=== PATIENT | female | born 1965 | race Caucasian/White ===

== ENCOUNTER 2016-11-16 23:17 | Emergency (ER) | payer OTHER ==
[~2016-11-16 23:17] MED LIST: ACCUPRIL5 MG PO; ALLERGY10 MG PO; ATORVASTATIN CA40 MG PO; CRESTOR20 MG PO; CYMBALTA 30MG C30 MG PO; GLUCOPHAGE1000 MG PO; LANTUS100 UNIT/1 SC; LOPRESSOR50 MG PO; NORCO 5-325 TA1 EAC1 PO; TRICOR145 MG PO; ULTRAM50 MG PO
== END 2016-11-17 01:05 | disposition home or self-care (01) ==
LOC: FER 23:17
DX: S46.912A Strain of unspecified muscle, fascia and tendon at shoulder and upper arm level, left arm, initial encounter (principal); S66.911A Strain of unspecified muscle, fascia and tendon at wrist and hand level, right hand, initial encounter; E11.9 Type 2 diabetes mellitus without complications; I10 Essential (primary) hypertension; G89.29 Other chronic pain; E78.5 Hyperlipidemia, unspecified; Z79.84 Long term (current) use of oral hypoglycemic drugs; Z79.4 Long term (current) use of insulin; Z79.891 Long term (current) use of opiate analgesic; Z79.899 Other long term (current) drug therapy; X50.0XXA Overexertion from strenuous movement or load, initial encounter
CPT/HCPCS: J1100

== ENCOUNTER 2016-12-03 04:41 | Day surgery (SDCO) | payer OTHER ==
[~2016-12-03] VITALS: Ht 167.6 cm; Wt 96.4 kg
[2016-12-03 05:41] LABS: BASOPHIL 0.3 % (0-2); EOSINOPHIL 1.6 % (0-5); HCT 37.7 % (37.0-47.0); HGB 12.5 g/dl (12.5-16.0); LYMPHOCYTE 12.5 % (15-48); MCH 26.9 pg (25.0-31.0); MCHC 33.2 g/dL (32.0-36.0); MCV 81.3 fL (78.0-100.0); MONOCYTE 6.9 % (0-12); MPV 9.2 fL (6.0-9.5); NEUTROPHIL 78.7 % (41-80); PLT 216 K/uL (150-400); RBC 4.64 M/uL (4.20-5.40); RDW 13.5 % (11.5-14.0); WBC 7.7 K/uL (4.0-10.5)
[2016-12-03 05:51] LABS: INR 0.93 (0.9-1.2); PROTHROMBIN TIME 12.1 SECONDS (11.7-14.0)
[2016-12-03 05:52] LABS: PTT 26.2 SECONDS (23.2-31.4)
[2016-12-03 06:02] LABS: BILIRUBIN - TOTAL 0.3 mg/dL (0.1-1.0); CKMB 1.63 ng/mL (0.97-4.94); CREATININE 0.8 mg/dL (0.5-1.0); GLOBULIN (CALCULATION) 2.6 g/dL (2.2-4.2); MAGNESIUM 1.55 mg/dL (1.40-2.10); MYOGLOBIN 21 ng/mL (26-65); POTASSIUM 3.8 mmol/L (3.5-5.1); PRO-BNP 20 pg/mL (0-125); TOTAL PROTEIN 6.6 g/dL (6.4-8.3); TROPONIN T < 0.010 ng/mL
--- NOTE | 2016-12-04 12:00 | NUR ---
IV SITE D/C'D;PRESSURE DRESSING APPLIED;PT TOLERATED WELL. D/C & RX INSTRUCTIONS GIVEN;PT VERBALIZED UNDERSTANDING. 1245 D/C'D FROM FACILITY
== END 2016-12-04 13:19 | disposition home or self-care (01) ==
LOC: FER 04:41 → FICU 06:31 → FTCU 06:31 → FICU 06:31 → FTCU 15:14
PROVIDERS: Emergency Medicine; ADMIT Allergy & Immunology
DX: R07.89 Other chest pain (principal); R42 Dizziness and giddiness; E11.9 Type 2 diabetes mellitus without complications; I10 Essential (primary) hypertension; E78.5 Hyperlipidemia, unspecified; J44.9 Chronic obstructive pulmonary disease, unspecified; M54.5 Low back pain; N20.0 Calculus of kidney; G47.30 Sleep apnea, unspecified; Z90.49 Acquired absence of other specified parts of digestive tract; Z90.710 Acquired absence of both cervix and uterus; Z98.890 Other specified postprocedural states; Z87.891 Personal history of nicotine dependence; Z79.899 Other long term (current) drug therapy; Z79.84 Long term (current) use of oral hypoglycemic drugs
CPT/HCPCS: 36415; 71010; 80053; 80061; 82550; 82553; 83735; 83874; 83880; 84443; 84484; 85025; 85610; 85730; 87450; 93005; C9113; G0378; J1885; J2405

== ENCOUNTER → 2020-11-10 | Day surgery (SDC) | payer OTHER ==
[~2020-11-10] MED LIST changes: +AMLODIPINE BESYL5 MG PO; +BASAGLAR K100 UNIT/1 SC; +BENTYL10 MG PO; +CARAFATE1 GM PO; +CEFDINIR300 MG PO; +COLESTID 1GM TAB1 GM PO; +COZAAR100 MG PO; +DITROPAN XL10 MG PO; +DOXYCYCLINE HY100 MG MT; +FENOFIBRATE40 MG PO; +FLUOXETINE HCL10 M1 PO; +FOLBIC RF TABL1 EACH PO; +GABAPENTIN300 MG MT; +HCTZ25 MG PO; +HUMALOG 75100 UNIT/M PO; +HYDROCODON-ACE1 EAC2 PO; +IRON18 MG PO; +MEDROL 4MG DOSEP4 MG PO; +METFORMIN HCL500 M1 PO; +METOPROLOL SUCC25 MG MT; +NORCO 5-325 TA1 EACH PO; +TIZANIDINE HCL4 MG MT; +VALSARTAN320 MG MT; +VENTOLIN HFA18 GM INH; +VICTOZA 3-0.6 MG/0.1 SC; +ZOFRAN4 MG PO
[2020-11-10 07:48] LABS: HCT 40.2 % (37.0-47.0); HGB 12.4 g/dl (12.5-16.0); MCH 26.2 pg (25.0-31.0); MCHC 30.8 g/dL (32.0-36.0); MPV 9.2 fL (6.0-9.5); RBC 4.73 M/uL (4.20-5.40); RDW 13.7 % (11.5-14.0)
[2020-11-10 08:00] LABS: BILIRUBIN - TOTAL 0.6 mg/dL (0.2-1.0); BUN/CREAT RATIO (CALC) 16.5 RATIO; CREATININE 1.03 mg/dL (0.51-0.95); GLOBULIN (CALCULATION) 3.5 g/dL; POTASSIUM 3.8 mmol/L (3.5-5.1); TOTAL PROTEIN 7.5 g/dL (6.4-8.2)
== END | disposition home or self-care (01) ==
LOC: FAS 06:54
PROVIDERS: Surgery
DX: K29.50 Unspecified chronic gastritis without bleeding (principal); K63.5 Polyp of colon; K21.9 Gastro-esophageal reflux disease without esophagitis; D64.9 Anemia, unspecified; E78.5 Hyperlipidemia, unspecified; E66.01 Morbid (severe) obesity due to excess calories; E11.65 Type 2 diabetes mellitus with hyperglycemia; G47.30 Sleep apnea, unspecified; J44.9 Chronic obstructive pulmonary disease, unspecified; I10 Essential (primary) hypertension; Z79.899 Other long term (current) drug therapy; Z20.822 Contact with and (suspected) exposure to COVID-19; Z87.19 Personal history of other diseases of the digestive system; Z90.49 Acquired absence of other specified parts of digestive tract; Z98.84 Bariatric surgery status; Z87.09 Personal history of other diseases of the respiratory system; Z98.890 Other specified postprocedural states; Z87.891 Personal history of nicotine dependence
CPT/HCPCS: 36415; 80053; J2250; J2704; J7120

== ENCOUNTER 2021-03-05 21:11 | Emergency (ER) | payer OTHER ==
[~2021-03-05 21:11] MED LIST changes: -CEFDINIR300 MG PO; -MEDROL 4MG DOSEP4 MG PO; -NORCO 5-325 TA1 EACH PO; -VENTOLIN HFA18 GM INH
[2021-03-05 23:38] LABS: BILIRUBIN NEGATIVE (NEGATIVE); BLOOD NEGATIVE Ery/uL (NEGATIVE); CLARITY CLEAR (CLEAR); COLOR YELLOW (YELLOW); GLUCOSE (U) NORMAL (NORMAL); LEUKOCYTES NEGATIVE Leu/uL (NEGATIVE); NITRITE NEGATIVE (NEGATIVE); PROTEIN NEGATIVE (NEGATIVE); UROBILINOGEN 0.2 mg/dL (0.2-1.0)
[2021-03-06 00:48] LABS: BASOPHIL 0.1 % (0-2); EOSINOPHIL 0.7 % (0-5); HCT 37.5 % (37.0-47.0); HGB 11.5 g/dl (12.5-16.0); LYMPHOCYTE 9.5 % (15-48); MCH 25.7 pg (25.0-31.0); MCHC 30.7 g/dL (32.0-36.0); MCV 83.7 fL (78.0-100.0); MONOCYTE 5.1 % (0-12); MPV 9.7 fL (6.0-9.5); NEUTROPHIL 84.3 % (41-80); NRBC 0; PLT 241 K/uL (150-400); RBC 4.48 M/uL (4.20-5.40); RDW 13.9 % (11.5-14.0); WBC 7.6 K/uL (4.0-10.5)
[2021-03-06 01:16] LABS: PRO-BNP 62 pg/mL (<125)
[2021-03-06 01:18] LABS: ALBUMIN 3.4 g/dL (3.4-5.0); BILIRUBIN - TOTAL 0.4 mg/dL (0.2-1.0); BUN/CREAT RATIO (CALC) 27.1 RATIO; C-REACTIVE PROTEIN 1.2 mg/dL (<=0.90); CREATININE 1.18 mg/dL (0.51-0.95); GLOBULIN (CALCULATION) 3.4 g/dL; MAGNESIUM 1.7 mg/dL (1.8-2.4); POTASSIUM 4.1 mmol/L (3.5-5.1); TOTAL PROTEIN 6.8 g/dL (6.4-8.2)
[2021-03-06] MEDS ORDERED: MEDROL 4MG DOSEP4 MG PO (05:56)
[2021-03-06] MEDS ORDERED: CEFDINIR300 MG PO (05:56)
[2021-03-06] MEDS ORDERED: VENTOLIN HFA18 GM INH (05:56)
[2021-03-06] MEDS ORDERED: NORCO 5-325 TA1 EACH PO (05:56)
== END 2021-03-06 06:15 | disposition home or self-care (01) ==
LOC: FER 21:11
PROVIDERS: Emergency Medicine
DX: J20.9 Acute bronchitis, unspecified (principal); Z20.822 Contact with and (suspected) exposure to COVID-19
CPT/HCPCS: 36415; 71275; 80053; 81003; 82728; 83605; 83615; 83735; 83880; 84145; 84484; 85025; 85379; 86140; 93005; J1170; J2405; J7030; Q9967; U0002

== ENCOUNTER 2021-05-22 20:10 | Emergency (ER) | payer OTHER ==
[~2021-05-22 20:10] MED LIST changes: +CEFDINIR300 MG PO; +MEDROL 4MG DOSEP4 MG PO; +NORCO 5-325 TA1 EACH PO; +VENTOLIN HFA18 GM INH
== END 2021-05-22 22:48 | disposition home or self-care (01) ==
LOC: FER 20:10
DX: S93.401A Sprain of unspecified ligament of right ankle, initial encounter (principal); I10 Essential (primary) hypertension; E11.9 Type 2 diabetes mellitus without complications; Z79.899 Other long term (current) drug therapy; X58.XXXA Exposure to other specified factors, initial encounter; Y92.009 Unspecified place in unspecified non-institutional (private) residence as the place of occurrence of the external cause
CPT/HCPCS: 73610

== ENCOUNTER 2021-07-21 21:05 | Emergency (ER) | payer OTHER ==
[2021-07-21] MEDS ORDERED: MEDROL 4MG DOSEP4 MG PO (21:48)
[2021-07-21] MEDS ORDERED: CYCLOBENZAPRINE10 MG PO (21:48)
== END 2021-07-21 22:06 | disposition home or self-care (01) ==
LOC: FER 21:05
DX: M54.31 Sciatica, right side (principal); E11.9 Type 2 diabetes mellitus without complications; I10 Essential (primary) hypertension
CPT/HCPCS: 96372; 99283; J1100; J1885

== ENCOUNTER 2021-11-08 22:20 | Day surgery (SDCO) | payer OTHER ==
[~2021-11-08] VITALS: Ht 167.6 cm; Wt 103.1 kg
[~2021-11-08 22:20] MED LIST changes: +CYCLOBENZAPRINE10 MG PO
[2021-11-09 00:24] LABS: BILIRUBIN NEGATIVE (NEGATIVE); BLOOD NEGATIVE Ery/uL (NEGATIVE); CLARITY CLEAR (CLEAR); COLOR YELLOW (YELLOW); GLUCOSE (U) NORMAL (NORMAL); LEUKOCYTES NEGATIVE Leu/uL (NEGATIVE); NITRITE NEGATIVE (NEGATIVE); PROTEIN NEGATIVE (NEGATIVE); SPECIFIC GRAVITY >=1.030 (1.001-1.030); UROBILINOGEN 0.2 mg/dL (0.2-1.0)
[2021-11-09 00:34] LABS: BASOPHIL 0.3 % (0-2); EOSINOPHIL 0.2 % (0-5); HCT 40.4 % (37.0-47.0); HGB 12.6 g/dl (12.5-16.0); LYMPHOCYTE 8.8 % (15-48); MCH 25.7 pg (25.0-31.0); MCHC 31.2 g/dL (32.0-36.0); MCV 82.4 fL (78.0-100.0); MONOCYTE 7.1 % (0-12); MPV 9.9 fL (6.0-9.5); NEUTROPHIL 83.2 % (41-80); NRBC 0; PLT 238 K/uL (150-400); RDW 13.9 % (11.5-14.0); WBC 9.8 K/uL (4.0-10.5)
[2021-11-09 00:44] LABS: BUN/CREAT RATIO (CALC) 13.8 RATIO; CREATININE 1.23 mg/dL (0.51-0.95); POTASSIUM 3.7 mmol/L (3.5-5.1)
[2021-11-09 00:56] LABS: CORONAVIRUS 2019 SARS-COV-2 NEGATIVE (NEGATIVE); INFLUENZA A NAA NEGATIVE (NEGATIVE)
[2021-11-09] MEDS ORDERED: TIZANIDINE HCL4 M1 PO (06:20)
[2021-11-09] MEDS ORDERED: HCTZ25 MG PO (06:21)
[2021-11-09] MEDS ORDERED: PROZAC20 MG PO (06:22)
[2021-11-09] MEDS ORDERED: PROTONIX 40MG T40 MG PO (06:23)
[2021-11-09] MEDS ORDERED: BUSPAR5 MG PO (06:23)
[2021-11-09] MEDS ORDERED: FENOFIBRATE160 MG PO (06:24)
[2021-11-09] MEDS ORDERED: LANTUS100 UNIT/1 SC (06:25)
[2021-11-09] MEDS ORDERED: HUMALOG100 UNIT/3 SC (06:29)
--- NOTE | 2021-11-09 06:45 | NUR ---
0645 11/09/21 PATIENT STATES SHE HAS A LIVING WILL ON FILE WITH HOSPITAL. PASSED ON TO DAY SHIFT ЕЛЕНА Orr RN TO CALL [facility] AT [phone] TO REQUEST.
[2021-11-10 06:40] LABS: BASOPHIL 0.1 % (0-2); EOSINOPHIL 0.7 % (0-5); HCT 35.6 % (37.0-47.0); HGB 10.9 g/dl (12.5-16.0); LYMPHOCYTE 22.1 % (15-48); MCHC 30.6 g/dL (32.0-36.0); MCV 84.8 fL (78.0-100.0); MONOCYTE 6.3 % (0-12); MPV 9.7 fL (6.0-9.5); NEUTROPHIL 70.5 % (41-80); NRBC 0; PLT 194 K/uL (150-400); WBC 7.3 K/uL (4.0-10.5)
[2021-11-10 06:59] LABS: BUN/CREAT RATIO (CALC) 17.9 RATIO; CREATININE 1.06 mg/dL (0.51-0.95); POTASSIUM 3.6 mmol/L (3.5-5.1)
--- NOTE | 2021-11-10 13:55 | NUR ---
5/6 Pt lives at home with spouse, daughter, daughter's BF, and theor child. She has a C-PAP. PCP = Raisa Bower. - Waiting on walk test to determine if 02 is needed.
[2021-11-11 06:18] LABS: HCT 33.9 % (37.0-47.0); HGB 10.4 g/dl (12.5-16.0); MCH 26.1 pg (25.0-31.0); MCHC 30.7 g/dL (32.0-36.0); MCV 85.2 fL (78.0-100.0); MPV 9.9 fL (6.0-9.5); RBC 3.98 M/uL (4.20-5.40); WBC 5.9 K/uL (4.0-10.5)
[2021-11-11 06:43] LABS: BUN/CREAT RATIO (CALC) 20.6 RATIO; CREATININE 0.97 mg/dL (0.51-0.95); POTASSIUM 3.6 mmol/L (3.5-5.1)
[2021-11-11] MEDS ORDERED: VENTOLIN HFA IN18 GM INH (09:01)
[2021-11-11] MEDS ORDERED: PREDNISONE 20MG20 MG PO (09:01)
[2021-11-11] MEDS ORDERED: NEBULIZER UNIT NEB (09:01)
[2021-11-11] MEDS ORDERED: AZITHROMYCIN250 MG PO (09:01)
[2021-11-11] MEDS ORDERED: CEFDINIR300 MG PO (09:01)
[2021-11-11] MEDS ORDERED: DUONEB 2.5-0.5M1 AMP NEB (09:01)
--- NOTE | 2021-11-11 10:04 | NUR ---
PT IS IN OBS. PLEASE CONSIDER INPT OR D/C.
== END 2021-11-11 12:38 | disposition home or self-care (01) ==
LOC: FER 22:20 → FMS 11-09 05:40
PROVIDERS: Internal Medicine; Nurse Practitioner; ADMIT Internal Medicine
DX: J18.8 Other pneumonia, unspecified organism (principal); J96.01 Acute respiratory failure with hypoxia; J44.9 Chronic obstructive pulmonary disease, unspecified; E11.9 Type 2 diabetes mellitus without complications; F32.A Depression, unspecified; K21.9 Gastro-esophageal reflux disease without esophagitis; I10 Essential (primary) hypertension; E78.5 Hyperlipidemia, unspecified; Z87.891 Personal history of nicotine dependence; Z20.822 Contact with and (suspected) exposure to COVID-19
CPT/HCPCS: 36415; 36600; 71045; 71260; 80048; 81003; 82803; 83880; 84145; 84484; 85025; 93005; 94010; 94640; 94667; 94668; 94760; 94762; G0378; J0456; J0696; J1100; J1650; J2405; J7030; J7050; Q9967; U0002

== ENCOUNTER 2021-12-06 15:35 | Emergency (ER) | payer OTHER ==
[~2021-12-06 15:35] MED LIST changes: +AZITHROMYCIN250 MG PO; +BUSPAR5 MG PO; +DUONEB 2.5-0.5M1 AMP NEB; +FENOFIBRATE160 MG PO; +HUMALOG100 UNIT/3 SC; +NEBULIZER UNIT NEB; +PREDNISONE 20MG20 MG PO; +PROTONIX 40MG T40 MG PO; +PROZAC20 MG PO; +TIZANIDINE HCL4 M1 PO; +VENTOLIN HFA IN18 GM INH
[2021-12-06] MEDS ORDERED: CEPHALEXIN500 MG PO (17:26)
== END 2021-12-06 17:53 | disposition home or self-care (01) ==
LOC: FER 15:35
DX: S61.245A Puncture wound with foreign body of left ring finger without damage to nail, initial encounter (principal); I10 Essential (primary) hypertension; E11.9 Type 2 diabetes mellitus without complications; Z23 Encounter for immunization; W45.8XXA Other foreign body or object entering through skin, initial encounter
CPT/HCPCS: 90471; 90715